=== PATIENT | female | born 1995 | race Caucasian/White ===

== ENCOUNTER 2019-07-09 19:04 | Emergency (ER) | payer OTHER ==
[~2019-07-09] VITALS: Ht 170.2 cm; Wt 84.5 kg
[2019-07-09] MEDS ORDERED: prenatal (19:16)
[2019-07-09 20:05] LABS: BASO % 0.3 % (0.0-1.0); EOS # 0.1 10^3/uL (0.0-0.5); EOS % 0.6 % (0.0-3.0); HEMATOCRIT 40.1 % (36.0-47.0); HEMOGLOBIN 12.7 g/dl (12.0-15.5); LYMPH # 2.8 10^3/uL (1.5-5.0); LYMPH % 24.3 % (24.0-44.0); MEAN CORPUSCULAR HEMOGLOBIN 28.9 pg (27.0-33.0); MEAN CORPUSCULAR HGB CONC 31.7 g/dl (32.0-36.5); MEAN CORPUSCULAR VOLUME 91.1 fl (80.0-96.0); MONO # 0.9 10^3/uL (0.0-0.8); MONO % 7.7 % (0.0-5.0); NEUTROPHILS # 7.6 10^3/uL (1.5-8.5); NEUTROPHILS % 66.8 % (36.0-66.0); PLATELET COUNT, AUTOMATED 299 10^3/uL (150-450); WHITE BLOOD COUNT 11.4 10^3/uL (4.0-10.0)
[2019-07-09 20:47] LABS: BLOOD UREA NITROGEN 10 MG/DL (7-18); CALCIUM LEVEL 8.7 MG/DL (8.5-10.1); CARBON DIOXIDE LEVEL 30 MEQ/L (21-32); CHLORIDE LEVEL 107 MEQ/L (98-107); CREATININE FOR GFR 0.79 MG/DL (0.55-1.30); GLOMERULAR FILTRATION RATE > 60.0 (>60); GLUCOSE, FASTING 92 MG/DL (70-100); HCG, SERUM QUANTITATIVE 25457 MIU/ML; POTASSIUM SERUM 3.7 MEQ/L (3.5-5.1); SODIUM LEVEL 140 MEQ/L (136-145)
--- NOTE | 2019-07-09 22:04 | REPVR ---
PROCEDURE INFORMATION: Exam: US First Trimester, Transabdominal Exam date and time: 07/09/2019 9:16 PM Age: 23 years old Clinical indication: Lmp or gestational age (in weeks): 6w1d; Other: Vaginal bleeding; ; Additional info: Vaginal bleeding 1 hr, lmp 07/09/19, confirmed preg w/ob today TECHNIQUE: Imaging protocol: Real-time transabdominal obstetrical ultrasound of the maternal pelvis and a first trimester , less than 14 weeks 0 days, with image documentation. COMPARISON: No relevant prior studies available. FINDINGS: GESTATION: Gestation: Gestational sac within the fundal endometrium with a pole. Heart rate: heartbeat of 101 bpm. Placenta: No subchorionic bleed. [place]-Rump length: [place]-rump length is 5 mm suggesting an age of 6 weeks 1 day. The EDC is 03/02/2020. MATERNAL: Uterus: The uterus measures 8.6 cm in its cephalocaudad dimension and 5.2 cm in its AP dimension. Cervix: Unremarkable. Right adnexa: The right ovary measures 2.4 x 3.6 x 1.9 cm and demonstrates minimal follicles and normal blood flow. Left adnexa: The left ovary measures 1.6 x 2.5 x 1.7 cm and demonstrates blood flow. Intraperitoneal: No intraperitoneal free fluid. IMPRESSION: Early single live intrauterine gestation with an estimated age of 6 weeks 1 day. The EDC is 03/02/2020. Electronically signed by: Nathan Us On 07/09/2019 22:03:51 PM
[2019-07-09 23:19] VITALS: BP 119/57
== END 2019-07-09 23:21 | disposition home or self-care (01) ==
LOC: M ED 19:04
DX: O26.851 Spotting complicating pregnancy, first trimester (principal); Z3A.01 Less than 8 weeks gestation of pregnancy; O09.291 Supervision of pregnancy with other poor reproductive or obstetric history, first trimester; Z91.030 Bee allergy status

== ENCOUNTER 2020-02-18 13:58 | Inpatient (IN) | payer OTHER ==
[2020-02-18] VITALS (34 sets, daily range): BP systolic 97–131; BP diastolic 47–87
[~2020-02-18] VITALS: Ht 170.2 cm; Wt 102.1 kg
[~2020-02-18 13:58] MED LIST: prenatal PO
[2020-02-18] MEDS ORDERED: NON-325T5 PO (14:37)
[2020-02-18] MEDS ORDERED: TUMS750C5 PO (14:37)
[2020-02-18] MEDS ORDERED: LACTATED RINGER'S 1000 ML IV STA (15:20)
[2020-02-18] MEDS ORDERED: LR 1,000 ML IV SCH ×2 (16:00→18:01)
--- NOTE | 2020-02-18 16:01 | HPEPDOC ---
Obstetrical History & Physical General Date of Admission Feb 18, 2020 at 14:38 History of Present Illness 24yo christiano [id number] @38+0, A+, GBS-, presenting to labor and delivery from [facility] in labor Chief Complaint: Contractions, term, Nausea and vomiting (nausea with contractions, no vomiting at this time) Information Provided By: Patient Age: 24 : 3 Term: 1 Pre-term: 0 Abortions: 1 Livin Care Care: Good Care Dating Final EDC: Mar 03, 2020 Final EDC for Daily Update: Mar 03, 2020 Final EDC by: LMP LMP: May 21, 2019 EGA at Admission: 38 Antepartum Course Diagnos(e)s dizziness and SOB in cleared by cardiology, excessive weight gain in , elevated 1hr GTT with normal 3hr GTT Height (inches): 67 Pre- weight (lbs.): 184 Admission Weight (lbs.): 223 Change in Weight (lbs.): 39 Past Medical History Past Obstetrical History : Past Obstetrical History: Multigravida Date of Delivery: Jul 25, 2014 Gestation: 40 Type of Delivery: Spontaneous Vaginal Del. 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 Past Medical History Medical History denies Surgical History: Denies/None Family History Significant Family History: Diabetes (mother), Other (mother born with facial hemangioma) Social History Marital Status: Family situation: Spouse/partner home * Smoker: non-smoker Alcohol: Denies Drugs: denies Abuse Violence Screening Have you been hit/kicked/slapp: No Have you been sexually assault: No Imunizations Tdap status: declined Influenza Status: declined Allergies Coded Allergies: bee venom protein (honey bee) (Verified Allergy, Severe, anaphylaxis, 02/18/20) Medications Scheduled [] , 1 TAB PO DAILY Scheduled PRN Acetaminophen (Acetaminophen) 325 Mg Tablet, 650 MG PO Q6HP PRN for DISCOMFORT Calcium Carbonate (Tums) 300 Mg Tab.chew, 1-2 TABS PO Q6HP PRN for INDIGESTION Physical Examination Physical Examination GENERAL: Alert and oriented times three. BREAST: . ABDOMEN: Gravid and non-tender to touch. FETUS: Is vertex (VTX) by sterile vaginal examination (SVE), fetus is vertex (VTX) by Austyn. HEART RATE: Regular rate and rhythm. LUNGS: Clear to auscultation (CTA). EXTREMITIES: No edema. Vital Signs/I&O Vital Signs Date Time Temp Pulse Resp B/P (MAP) Pulse Ox O2 Delivery O2 Flow Rate FiO2 02/18/20 14:32 98.2 80 20 108/61 (77) 98 Room Air Laboratory Data 24H LABS Laboratory Tests 2 02/18/20 14:53: Serology Scanned Report Hepatitis B Testing Pertinent Laboratoy Data Blood Type: A+ RBC Antibody Screen: Negative HIV: Negative Hepatitis B: Negative Rapid Plasma Reagin: Nonreactive Rubella: Immune Varicella: Immune Chlamydia/Gonorrhea: Negative Group B Streptococcus: Negative Cystic Fibrosis: Negative Anatomy Ultrasound Ultrasound Date: Nov 12, 2019 Placenta Location: Anterior Normal Anatomy: Yes Placenta Previa: No Vaginal Examination Dilation: 5 cm Effacement: 70% Station: -2 Cervical Consistency: Medium Cervical Position: Posterior Presentation: Cephalic presentation Assessment Heart Rate (FHR): 120 Variability: Moderate Accelerations: Positive Decelerations: None Tocometer Contractions: Yes Frequency: every 2-5 min. Strength: palpated as moderate Multi-drug resistant Organism: No history of MDRO Assessment/Plan Assessment [Alisha] is a [24]-year-old (G)[3] para (P)[1]-[0]-[1]-[1] at [38]+[0] weeks by [7]-week ultrasound. Presents to Labor and Delivery (L&D) [for labor at term]. 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 Diet: [clears]. Group B Streptococcus (GBS) [negative]. Labs and intravenous (IV) per unit protocol. Counseled on Pitocin and augmentation of labor. Lactated Ringers (LR): Bolus [1000] mL, then at [125] mL/hr. Anticipate [normal spontaneous delivery ()]. continuous efm, monitor for change in or maternal status, evaluate for change as indicated Labor and Delivery Counseling Patient consents for blood products adn labor reviewed with expressed understanding and consent confirmed. MAINE BARAJAS CNM Feb 18, 2020 16:01
[2020-02-18 16:30] LABS: HEMATOCRIT 40.7 % (36.0-47.0); HEMOGLOBIN 13.3 g/dl (12.0-15.5); MEAN CORPUSCULAR HEMOGLOBIN 29.4 pg (27.0-33.0); MEAN CORPUSCULAR HGB CONC 32.7 g/dl (32.0-36.5); PLATELET COUNT, AUTOMATED 319 10^3/uL (150-450); RED BLOOD COUNT 4.52 10^6/uL (4.00-5.40); WHITE BLOOD COUNT 16.8 10^3/uL (4.0-10.0)
[2020-02-18] MEDS ORDERED: LACTATED RINGER'S 1000 ML IV ONE (18:15)
[2020-02-18] MEDS ORDERED: FENTANYL 2MCG/ML ROPIVACAINE 0.2% IN 0.9% NACL 100ML IVBAG As Ordered ONE (19:08)
[2020-02-18] MEDS ORDERED: OXYTOCIN 30 UNITS IN 0.9% NaCl 500ML IV BAG (J2590) As Ordered ONE (19:08)
[2020-02-18] MEDS ORDERED: NALOXONE INJ 0.4MG/1ML VIAL (J2310 PER 1MG) IV PRN (20:10)
[2020-02-18] MEDS ORDERED: REFRIGERATOR IV KEYS XX PRN (20:10)
[2020-02-18] MEDS ORDERED: LACTATED RINGER'S 1000 ML IV PRN (20:10)
[2020-02-18] MEDS ORDERED: ePHEDrine SULFATE 25 MG/5 ML(5MG/ML) SYRINGE IV PRN (20:10)
[2020-02-18] MEDS ORDERED: EPIDURAL COMMENT XX SCH (20:10)
[2020-02-18] MEDS ORDERED: EPIDURAL/PCA KEYS XX PRN (20:10)
[2020-02-18] MEDS ORDERED: diphenhydrAMINE 50MG/ML VIAL (J1200) IV PRN (20:10)
[2020-02-18] MEDS ORDERED: ONDANSETRON 4MG/2ML VIAL IV PRN (20:10)
[2020-02-18] MEDS ORDERED: FENTANYL/ROPIVACAINE/NACL BAG 100 ML EPIDURAL SCH (20:10)
[2020-02-18 23:32] LABS: CORD GAS ABE A -6.2; CORD GAS HCO3 A 23.1 MEQ/L; CORD GAS O2 SAT A 30.5 %; CORD GAS PCO2 A 60.5 mmHg; CORD GAS PH A 7.199 UNITS; CORD GAS PO2 A 18.8 mmHg; CORD GAS SBC A 17.8 MEQ/L; CORD GAS TCO2 A 24.9 MEQ/L
[2020-02-18 23:33] LABS: CORD GAS ABE V -4.6; CORD GAS HCO3 V 22.9 MEQ/L; CORD GAS O2 SAT V 76.9 %; CORD GAS PCO2 V 50.7 mmHg; CORD GAS PH V 7.272 UNITS; CORD GAS PO2 V 34.6 mmHg; CORD GAS SBC V 20.2 MEQ/L; CORD GAS TCO2 V 24.4 MEQ/L
[2020-02-18] MEDS ORDERED: DOCUSATE SODIUM 100 MG CAP PO PRN (23:45)
[2020-02-18] MEDS ORDERED: MEASLES,MUMPS,RUBELLA VACCINE INJ (MMR-II) (90707) SC SCH (23:45)
[2020-02-18] MEDS ORDERED: METHYLERGONOVINE MALEATE 0.2 MG TAB PO PRN (23:45)
[2020-02-18] MEDS ORDERED: OXYTOCIN INJ 10 UNITS/ML VIAL (J2590) IV ONE (23:45)
[2020-02-18] MEDS ORDERED: RHOGAM 300 MCG (1500 IU) INJ (J2790) IM SCH (23:45)
[2020-02-18] MEDS ORDERED: OXYTOCIN DRIP 30 UNITS in IV 1 EA IV ONE (23:45)
[2020-02-18] MEDS ORDERED: IBUPROFEN 600MG TAB PO PRN (23:45)
[2020-02-18] MEDS ORDERED: DIBUCAINE 1% OINTMENT 30GM TOP PRN (23:45)
[2020-02-18] MEDS ORDERED: ACETAMINOPHEN TAB 650MG DOSE (2X325MG) PO PRN (23:45)
[2020-02-18] MEDS ORDERED: ANUSOL HC CREAM 30GM TOP PRN (23:45)
[2020-02-18] MEDS ORDERED: MOM 30ML SUSPENSION UDC PO PRN (23:45)
[2020-02-19] VITALS (7 sets, daily range): BP systolic 103–131; BP diastolic 57–72
[2020-02-19] MEDS ORDERED: ONDANSETRON 4MG/2ML VIAL IV ONE (00:45)
[2020-02-19] MEDS ORDERED: ONDANSETRON 4MG/2ML VIAL As Ordered ONE (00:47)
[2020-02-19 07:24] LABS: HEMATOCRIT 38.9 % (36.0-47.0); MEAN CORPUSCULAR HEMOGLOBIN 30.1 pg (27.0-33.0); MEAN CORPUSCULAR HGB CONC 33.4 g/dl (32.0-36.5); PLATELET COUNT, AUTOMATED 298 10^3/uL (150-450); RED BLOOD COUNT 4.32 10^6/uL (4.00-5.40); WHITE BLOOD COUNT 19.5 10^3/uL (4.0-10.0)
[2020-02-19] MEDS: IBUPROFEN 800 MG TAB PO PRN ×2 (07:51→17:18)
[2020-02-19] MEDS: PRENATAL VITAMINS CHEWABLE TABLET PO SCH (07:51)
[2020-02-19] MEDS: ACETAMINOPHEN 500 MG TAB PO PRN (19:46)
[2020-02-20] MEDS: IBUPROFEN 800 MG TAB PO PRN (05:39)
[2020-02-20 06:00] VITALS: BP 122/68
[2020-02-20] MEDS: PRENATAL VITAMINS CHEWABLE TABLET PO SCH (08:32)
[2020-02-20] MEDS: ACETAMINOPHEN 500 MG TAB PO PRN (08:33)
--- NOTE | 2020-03-02 10:56 | IPN ---
DATE: 02/18/2020 This lady is a 24-year-old 3, para 1 who was assessed at the clinic and found to be 3 cm, re-evaluated several hours later. Was found to be 5 cm and was turned to labor and delivery. She was 5 cm at 1500 hours, and we checked her at 1800 hours. She was still 5, high, soft, -3 station. She dos have a significant scarification in her vaginal, especially right up the posterior vaginal wall from a traumatic vaginal delivery with repair. Presently at 38 weeks of gestation, GBS negative, A positive. Vital signs: Blood pressure 108/61, respirations 18, pulse 78, temperature 98.2. We discussed the plan of care at this present time. Because there was significant traumatic vaginal delivery previously, our recommendation is that she have an epidural prior to an artificial rupture of membranes (AROM) in order to have control of descent and delivery. The past history is that she had a persistent occiput posterior with what wounds like a third of fourth-degree tear that was repaired. Considering that the pelvis does not change, the possibility of a persistent occiput posterior (POP) delivery should be anticipated, and we discussed the fact that they may require repair if there is significant pressure on the rectum as the baby comes down. Patient expressed understanding and consented to having an epidural and an AROM. A 20-minute discussion. All questions were answered. BONILLA
--- NOTE | 2020-03-02 10:58 | IPN ---
DATE: 02/19/2020 This is a 24-year-old 3, now para 2 admitted with spontaneous labor at 38 weeks of gestation. Spontaneous vaginal delivery, male , 6 pounds 1 ounces, 2740 grams, scores of 9 and 9 at 1 and 5 minutes, respectively. Cord times four around the neck quite tight and a true knot in the cord. She had an intact perineum. This morning, her blood pressure is 103/57, respirations 18, pulse 92, temperature 99.1. Admitting hemoglobin 13.3, hematocrit 40.7, and platelets were 319. day #1 hemoglobin 13, hematocrit 38.9, and platelets were 298. We discussed phlebitis, cystitis, mastitis, endometritis, and cellulitis, diet, exercise, pain management, perineal, breast, and wound care. Medications were dispensed at [facility]. She will have a 6 week checkup at [facility] ([facility]). Plans are to circumcise her male infant today and discharge tomorrow. All questions were answered, 20 minute discussion. BONILLA
--- NOTE | 2020-03-03 17:16 | DN ---
DATE OF DELIVERY: 02/18/2020. This lady is a 3, para 1, admitted at 38 weeks 0 days in active labor. She had an ARM draining clear liquid 5 cc at full dilatation. Delivered after two pushes a live male , weighing 6 pounds 1 ounce (2740 grams), Apgars of 9 and 9 at 1 and 5 minutes respectively. Cord around the neck times four plus a true knot in the cord. Arterial pH 7.19, base excess -6.2, venous pH 7.27, base excess -4.6. Placenta delivered spontaneously thereafter; three vessel cord, membranes and tissues intact. Evaluation of the anterior, posterior and lateral collins was complete. Sphincter was tight. Urethra was midline. Uterus contracted well on the Pitocin. Patient and baby tolerated the procedure well. MTDD
--- NOTE | 2020-03-04 07:08 | IPN ---
DATE: 02/18/2020 SUBJECTIVE: This patient and requested circumcision of their male infant. After discussing the risks and benefits of the circumcision, the medical and non-medical indications, the penile block and aftercare, expressed an understanding of penile block and aftercare and bleeding, signed the consent form, all questions were answered; a 20 minute discussion. We await clearance by the contract assistant. BONILLA
== END 2020-02-20 14:10 | disposition home or self-care (01) | DRG 807 ==
LOC: M LDO 13:58 → M LDI 14:38 → M OBS 02-19 01:21
PROVIDERS: ADMIT Registered Nurse; ATTEND Registered Nurse
PROC: 10E0XZZ Delivery of Products of Conception, External Approach (ICD-10-PCS; principal; 2020-02-18)
PROC: 10907ZC Drainage of Amniotic Fluid, Therapeutic from Products of Conception, Via Natural or Artificial Opening (ICD-10-PCS; 2020-02-18)
DX: O69.2XX0 Labor and delivery complicated by other cord entanglement, with compression, not applicable or unspecified (principal); Z37.0 Single live birth; Z3A.38 38 weeks gestation of pregnancy; Z91.030 Bee allergy status; O26.00 Excessive weight gain in pregnancy, unspecified trimester